=== PATIENT | female | born 1990 | race African-American/Black ===

== ENCOUNTER 2018-01-09 01:57 | Emergency (ER) | payer OTHER ==
[2018-01-09 02:02] VITALS: BP 126/93; PULSE 83; TEMP 98.6; BMI 24.1
--- NOTE | 2018-01-09 02:15 | PDOC ---
History of Present Illness - General Chief Complaint: Injury Stated Complaint: CUT BETWEEN FINGERS WITH A KNIFE Time Seen by Provider: 01/09/18 02:09 History Source: Patient Exam Limitations: No Limitations - History of Present Illness Initial Comments: 01/09/18 02:16 This is a 27-year-old female who cut her right webspace between the third and fourth fingers prior to coming in. Patient said that she accidentally cut it on a knife at work. Patient otherwise denies any complaints. Patient's tetanus -is up-to-date as she has a year ago. Patient is otherwise healthy denies any other complaints. PAST MEDICAL HISTORY: no significant history PAST SURGICAL HISTORY: no significant history FAMILY HISTORY: no pertinant history SOCIAL HISTORY: Pt lives with family and is employed. MEDICATIONS: reviewed ALLERGIES: As per nursing notes Review of Systems General: No fevers or chills, no weakness, no weight loss HEENT: No change in vision. No sore throat,. No ear pain CardioVascular: No chest pain or shortness of breath Respiratory:No cough, or wheezing. Gastrointestinal: no nausea, vomitting, diarrhea or constipation, No rectal bleeding Genitourinary: No dysuria, hematuria, or frequency Musculoskeletal: No joint or muscle pain or swelling Neurologic: No headache, vertigo, dizziness or loss of consciousness Psychiatric: nor depression Skin: No rashes or easy bruising Endocrine: no increased thirst or abnormal weight change Allergic: no skin or latex allergy All other systems reviewed and normal GENERAL: The patient is awake, alert, and fully oriented, in no acute distress. HEAD: Normal with no signs of trauma. EYES: Pupils equal, round and reactive to light, extraocular movements intact, sclera anicteric, conjunctiva clear. EXTREMITIES: Normal range of motion, no edema. There is a superficial laceration between the third and fourth fingers. Approximately a half centimeter in length. Neurovascular distal is intact there is no active bleeding. NEUROLOGICAL: Normal speech, normal gait. grossly intact PSYCH: Normal mood, normal affect. SKIN: Warm, Dry, normal turgor, no rashes or lesions noted. Procedure note: The laceration was cleaned with peroxide and closed with Dermabond patient tolerated well Assessment and plan: This is a 27-year-old female who comes in with a superficial laceration in the [place] patient between her third and fourth finger of her right hand. Laceration was closed with Dermabond and patient was discharged patient will follow-up with her primary care doctor as needed Past History - Past Medical History Allergies/Adverse Reactions: Allergies Allergy/AdvReac Type Severity Reaction Status Date / Time No Known Allergies Allergy Verified 01/09/18 01:58 Home Medications: Ambulatory Orders No Home Medications 0 dose .ROUTE UTDICT 11/29/12 COPD: No Other medical history: DENIES - Immunization History Immunization Up to Date: Yes - Suicide/Smoking/Psychosocial Hx Smoking Status: No Smoking History: Never smoked Have you smoked in the past 12 months: No Number of Cigarettes Smoked Daily: 0 Information on smoking cessation initiated: No Hx Alcohol Use: Yes (EVERY OTHER DAY) Drug/Substance Use Hx: Yes (MARIJUANA) Substance Use Type: Alcohol, Marijuana *Physical Exam - Vital Signs Last Vital Signs Temp Pulse Resp BP Pulse Ox 98.6 F 83 16 126/93 100 01/09/18 01:58 01/09/18 01:58 01/09/18 01:58 01/09/18 01:58 01/09/18 01:58 *DC/Admit/Observation/Transfer Diagnosis at time of Disposition: Laceration of hand Qualifiers: Encounter type: initial encounter Foreign body presence: without foreign body Laterality: right Qualified Code(s): S61.411A - Laceration without foreign body of right hand, initial encounter - Discharge Dispostion Disposition: HOME Condition at time of disposition: Stable - Referrals - Patient Instructions Printed Discharge Instructions: DI for Laceration Repair With Dermabond Additional Instructions: Read over and follow the Dermabond instructions. The most important point is that he needs to stay dry for 72 hours and no lotions creams or ointments on it that we'll consult mood, for early. Tylenol or Motrin as needed for pain Return to the emergency department immediately with ANY new, persistent or worsening symptoms. Continue any medications as previously prescribed by your physician. You should follow up with your primary doctor as soon as possible regarding today's emergency department visit. . Please make sure your doctor reviews the results of your emergency evaluation. Thank you for coming to the Emergency Department today for your care. It was a pleasure to see you today. Please note that your evaluation is INCOMPLETE until you follow-up with your doctor. - Post Discharge Activity Forms/Work/School Notes: Back to Work
== END 2018-01-09 02:28 | disposition home or self-care (01) ==
LOC: FER 01:57
PROC: 0HQFXZZ Repair Right Hand Skin, External Approach (ICD-10-PCS; principal; 2018-01-09)
DX: S61.411A Laceration without foreign body of right hand, initial encounter (principal); W26.0XXA Contact with knife, initial encounter; Y93.9 Activity, unspecified; Y92.89 Other specified places as the place of occurrence of the external cause; Y99.0 Civilian activity done for income or pay
CPT/HCPCS: 99281-25

== ENCOUNTER 2022-02-21 04:16 | Day surgery (SDC) | payer OTHER ==
[2022-02-15 11:22] VITALS: BMI 25.2
[2022-02-21 12:53] VITALS: TEMP 97.3
[2022-02-21 13:31] VITALS: BP 123/98; PULSE 88
== END 2022-02-21 13:46 | disposition home or self-care (01) ==
LOC: JASU-ENDO 04:16
PROVIDERS: ATTEND Internal Medicine Gastroenterology
PROC: 0DB68ZX Excision of Stomach, Via Natural or Artificial Opening Endoscopic, Diagnostic (ICD-10-PCS; 2022-02-21)
PROC: 0DB98ZX Excision of Duodenum, Via Natural or Artificial Opening Endoscopic, Diagnostic (ICD-10-PCS; principal; 2022-02-21 10:45)
DX: K44.9 Diaphragmatic hernia without obstruction or gangrene (principal); K31.9 Disease of stomach and duodenum, unspecified; R10.13 Epigastric pain
CPT/HCPCS: 81025; 88305-TC; 88342-TC

== ENCOUNTER 2022-12-07 17:51 | Emergency (ER) | payer OTHER ==
[2022-12-07 18:00] VITALS: RESP 16; BMI 24.1
[2022-12-07] MEDS ORDERED: ACETAMINOPHEN 1000 MG/100 ML BAG IVPB ONE (20:38)
[2022-12-07] MEDS ORDERED: ACETAMINOPHEN INJECTION 100 ML IVPB ONE (20:44)
[2022-12-07 21:04] LABS: BASO % 0.7 % (0-2.0); EOS % 0.1 % (0-4.5); HEMATOCRIT 33.7 % (32.4-45.2); HEMOGLOBIN 11.3 GM/dL (10.7-15.3); LYMPH % 13.2 % (8-40); MCH 33.1 pg (25.7-33.7); MCHC 33.5 g/dl (32.0-36.0); MEAN PLT VOLUME 7.9 fl (7.5-11.1); MONO % 4.4 % (3.8-10.2); NEUT % 81.6 % (42.8-82.8); PLATELET COUNT 129 10^3/uL (134-434); RDW 20.7 % (11.6-15.6); WHITE BLOOD COUNT 7.6 K/mm3 (4.0-10.0)
[2022-12-07 21:25] LABS: CALCIUM 8.4 mg/dL (8.5-10.1)
[2022-12-07 21:26] LABS: ALBUMIN 3.6 g/dl (3.4-5.0); BLOOD UREA NITROGEN 15.3 mg/dL (7-18); MAGNESIUM 1.6 mg/dL (1.8-2.4)
[2022-12-07 21:29] LABS: CREATININE 0.8 mg/dL (0.55-1.3)
[2022-12-07 21:30] LABS: ACTIVATED PTT 29.1 SECONDS (25.2-36.5); BILIRUBIN,TOTAL 2.1 mg/dL (0.2-1); INR 1.14 (0.83-1.09); PROTHROMBIN TIME (PATIENT) 13.2 SEC (9.7-13.0); TOT PROT 7.8 g/dl (6.4-8.2)
[2022-12-07 21:34] LABS: N-TERMINAL BNP 9.5 pg/ml (5-125)
[2022-12-07] MEDS ORDERED: MAGNESIUM SULF 50% (8.12 MEQ/2 ML-1 GM VIAL) IVPB ONE (21:51)
[2022-12-07 22:04] VITALS: BP 112/68; PULSE 103; TEMP 99.4
[2022-12-07 22:12] LABS: ANISOCYTOSIS 2+; MACROCYTOSIS 2+; TARGET CELLS 1+
[2022-12-07] MEDS ORDERED: MAGNESIUM SULFATE IN WATER 2 GM/50 ML IVPB IVPB ONE (23:27)
[2022-12-08] MEDS ORDERED: MAGNESIUM SULFATE IN WATER 2 GM/50 ML IVPB IVPB ONE (00:25)
== END 2022-12-08 01:50 | disposition home or self-care (01) ==
LOC: JER 17:51
PROC: 3E033GC Introduction of Other Therapeutic Substance into Peripheral Vein, Percutaneous Approach (ICD-10-PCS; principal; 2022-12-07)
DX: R00.2 Palpitations (principal); R07.9 Chest pain, unspecified; R74.01 Elevation of levels of liver transaminase levels
CPT/HCPCS: 0241U-QW; 36415; 71046-TC-FY; 71275-TC; 76705-TC; 80053; 83735; 83880; 84439; 84443; 84484; 84703; 85025; 85379; 85610; 85730; 93005; 93010; 93308; 99285-25; Q9967

== ENCOUNTER 2023-04-17 13:15 | Inpatient (IN) | payer OTHER ==
[2023-04-17] MEDS ORDERED: ACETAMINOPHEN 1000 MG/100 ML BAG IVPB ONE (14:29)
[2023-04-17] MEDS ORDERED: MAG HYDROX/AL HYDROX/SIMETH 30 ML UNIT-DOSE CUP PO ONE (14:29)
[2023-04-17] MEDS ORDERED: SODIUM CHLORIDE 1,000 ML IV STA (14:29)
[2023-04-17] MEDS ORDERED: FAMOTIDINE 20 MG/50 ML IVPB 20 MG/50 ML MG IVPB ONE ×2 (14:29→15:00)
[2023-04-17] MEDS ORDERED: MAG HYDROX/AL HYDROX/SIMETH 30 ML UNIT-DOSE CUP ONE (14:59)
[2023-04-17] MEDS ORDERED: ACETAMINOPHEN INJECTION 100 ML IVPB ONE (14:59)
[2023-04-17 16:09] LABS: BASO % 0.3 % (0-2.0); EOS % 1.8 % (0-4.5); HEMATOCRIT 34.4 % (32.4-45.2); HEMOGLOBIN 11.1 GM/dL (10.7-15.3); LYMPH % 9.9 % (8-40); MCHC 32.2 g/dl (32.0-36.0); MEAN CELL VOLUME 105.7 fl (80-96); MEAN PLT VOLUME 7.9 fl (7.5-11.1); MONO % 5.6 % (3.8-10.2); NEUT % 82.4 % (42.8-82.8); PLATELET COUNT 532 10^3/uL (134-434); RBC 3.25 M/mm3 (3.60-5.2); RDW 17.8 % (11.6-15.6); WHITE BLOOD COUNT 7.5 K/mm3 (4.0-10.0)
[2023-04-17 16:18] LABS: EPI CELLS 19 /uL (0-25.1); HYALINE CASTS 0 /uL (0-3.1); URINE APPEARANCE CLEAR; URINE BACTERIA 150 /uL (0-1359); URINE BILIRUBIN NEGATIVE (NEGATIVE); URINE COLOR DK YELLOW; URINE GLUCOSE (UA) NEGATIVE (NEGATIVE); URINE KETONE TRACE (NEGATIVE); URINE LEUK ESTERASE NEGATIVE (NEGATIVE); URINE NITRITE NEGATIVE (NEGATIVE); URINE PROTEIN 1+ (NEGATIVE); URINE RBC 37 /uL (0-23.9); URINE WBC 8 /uL (0-25.8)
[2023-04-17 16:19] LABS: INR 1.03 (0.83-1.09); PROTHROMBIN TIME (PATIENT) 11.9 SEC (9.7-13.0)
[2023-04-17 16:22] LABS: ACTIVATED PTT 31.3 SECONDS (25.2-36.5)
[2023-04-17 16:27] LABS: CHLORIDE 105 mmol/L (98-107); POTASSIUM 3.8 mmol/L (3.5-5.1); SODIUM 140 mmol/L (136-145)
[2023-04-17 16:31] LABS: GLUCOSE,RANDOM 87 mg/dL (74-106)
[2023-04-17 16:32] LABS: ALBUMIN 2.8 g/dl (3.4-5.0); ANION GAP 8 MMOL/L (8-16); CO2 27 mmol/L (21-32)
[2023-04-17 16:34] LABS: CREATININE 0.6 mg/dL (0.55-1.3); SGPT/ALT 17 U/L (13-61)
[2023-04-17 16:35] LABS: BILIRUBIN,TOTAL 0.4 mg/dL (0.2-1); SGOT/AST 23 U/L (15-37); TOT PROT 7.4 g/dl (6.4-8.2)
[2023-04-17 16:37] LABS: ALK PHOS 99 U/L (45-117)
[2023-04-17 17:02] LABS: LIPASE 2518 U/L (73-393)
[2023-04-17] MEDS ORDERED: morphine CARPU-JECT 4 MG/1 ML DISP.SYRIN IVPUSH ONE (17:08)
[2023-04-17] MEDS ORDERED: ACETAMINOPHEN 325 MG TABLET (FP) PO PRN (17:25)
[2023-04-17] MEDS ORDERED: LACTATED RINGERS SOLUTION 1000 ML INFUS.BAG IV ONE (17:28)
[2023-04-17] MEDS ORDERED: morphine SULFATE 4 MG/ML VIAL ONE (17:34)
[2023-04-17 17:42] LABS: ANISOCYTOSIS 2+; MACROCYTOSIS 2+
[2023-04-17] MEDS ORDERED: ALBUTEROL SO4 HFA INHALER IH PRN (17:52)
[2023-04-17] MEDS: LACTATED RINGERS SOLUTION 1,000 ML/1,000 ML INFUS.BAG IV SCH (20:28)
[2023-04-17] MEDS: MELATONIN 1 MG TABLET PO PRN (23:14)
[2023-04-18 00:29] VITALS: BMI 25.4
[2023-04-18] MEDS: BUDESONIDE/FORMETEROL FUMARATE 160/4.5 mcg INHALER IH SCH ×3 (01:24→21:53)
[2023-04-18 05:01] VITALS: RESP 18
[2023-04-18] MEDS: ENOXAPARIN NA (PORCINE) 40 MG/0.4 ML DISP.SYRIN SQ SCH (10:14)
[2023-04-18] MEDS: PANTOPRAZOLE 20 MG TABLET PO SCH (10:14)
[2023-04-18] MEDS: LORATADINE 10 MG TABLET PO SCH (10:14)
[2023-04-18 11:28] LABS: HEMATOCRIT 31.3 % (32.4-45.2); HEMOGLOBIN 10.3 GM/dL (10.7-15.3); MCH 34.5 pg (25.7-33.7); MCHC 32.8 g/dl (32.0-36.0); MEAN CELL VOLUME 105.3 fl (80-96); MEAN PLT VOLUME 7.5 fl (7.5-11.1); PLATELET COUNT 467 10^3/uL (134-434); RBC 2.98 M/mm3 (3.60-5.2); RDW 17.8 % (11.6-15.6); WHITE BLOOD COUNT 6.1 K/mm3 (4.0-10.0)
[2023-04-18 11:55] LABS: POTASSIUM 3.7 mmol/L (3.5-5.1)
[2023-04-18 12:02] LABS: ALBUMIN 2.7 g/dl (3.4-5.0)
[2023-04-18 12:04] LABS: BLOOD UREA NITROGEN 3.3 mg/dL (7-18); CALCIUM 8.4 mg/dL (8.5-10.1); MAGNESIUM 1.7 mg/dL (1.8-2.4)
[2023-04-18 12:07] LABS: CREATININE 0.6 mg/dL (0.55-1.3)
[2023-04-18 12:08] LABS: BILIRUBIN,TOTAL 0.4 mg/dL (0.2-1); PHOSPHOROUS 4.5 mg/dL (2.5-4.9)
[2023-04-18 12:11] LABS: TOT PROT 6.9 g/dl (6.4-8.2)
[2023-04-18] MEDS: LACTATED RINGERS SOLUTION 1,000 ML/1,000 ML INFUS.BAG IV SCH (21:53)
[2023-04-18] MEDS: MELATONIN 1 MG TABLET PO PRN (22:00)
[2023-04-18] MEDS ORDERED: MAG HYDROX/AL HYDROX/SIMETH 30 ML UNIT-DOSE CUP PO ONE (22:37)
[2023-04-19] MEDS: KETOROLAC TROMETHAMINE 15 MG/ML VIAL IVPUSH PRN (00:57)
[2023-04-19] MEDS: LORATADINE 10 MG TABLET PO SCH (09:47)
[2023-04-19] MEDS: PANTOPRAZOLE 20 MG TABLET PO SCH (09:47)
[2023-04-19] MEDS: ENOXAPARIN NA (PORCINE) 40 MG/0.4 ML DISP.SYRIN SQ SCH (09:49)
[2023-04-19] MEDS: BUDESONIDE/FORMETEROL FUMARATE 160/4.5 mcg INHALER IH SCH ×2 (09:50→21:24)
[2023-04-19 09:59] LABS: BASO % 0.4 % (0-2.0); EOS % 14.8 % (0-4.5); HEMATOCRIT 29.6 % (32.4-45.2); HEMOGLOBIN 10.1 GM/dL (10.7-15.3); LYMPH % 19.3 % (8-40); MCH 35.1 pg (25.7-33.7); MCHC 34.1 g/dl (32.0-36.0); MEAN CELL VOLUME 103.2 fl (80-96); MEAN PLT VOLUME 7.1 fl (7.5-11.1); MONO % 7.1 % (3.8-10.2); NEUT % 58.4 % (42.8-82.8); PLATELET COUNT 390 10^3/uL (134-434); RBC 2.87 M/mm3 (3.60-5.2); RDW 17.7 % (11.6-15.6); WHITE BLOOD COUNT 5.5 K/mm3 (4.0-10.0)
[2023-04-19 10:51] LABS: POTASSIUM 3.9 mmol/L (3.5-5.1)
[2023-04-19 11:07] LABS: BLOOD UREA NITROGEN 4.6 mg/dL (7-18); CALCIUM 8.5 mg/dL (8.5-10.1)
[2023-04-19 11:08] LABS: ALBUMIN 2.5 g/dl (3.4-5.0)
[2023-04-19 11:10] LABS: CREATININE 0.6 mg/dL (0.55-1.3)
[2023-04-19 11:11] LABS: TOT PROT 6.6 g/dl (6.4-8.2)
[2023-04-19 11:12] LABS: BILIRUBIN,TOTAL 0.3 mg/dL (0.2-1)
[2023-04-19] MEDS: LACTATED RINGERS SOLUTION 1,000 ML/1,000 ML INFUS.BAG IV SCH (12:58)
[2023-04-19] MEDS: MAGNESIUM OXIDE 400 MG TABLET (FP) PO SCH ×2 (14:17→21:24)
[2023-04-19] MEDS: FERROUS SO4 325 MG TABLET (FP) PO SCH (17:07)
[2023-04-19] MEDS: MELATONIN 1 MG TABLET PO PRN (21:24)
[2023-04-20] MEDS: MAGNESIUM OXIDE 400 MG TABLET (FP) PO SCH (06:19)
[2023-04-20 08:06] LABS: CARCINOEMBRYONIC ANTIGEN 1.7 ng/mL (0.0-4.7)
[2023-04-20] MEDS: KETOROLAC TROMETHAMINE 15 MG/ML VIAL IVPUSH PRN (09:21)
[2023-04-20] MEDS: FERROUS SO4 325 MG TABLET (FP) PO SCH (09:21)
[2023-04-20] MEDS: BUDESONIDE/FORMETEROL FUMARATE 160/4.5 mcg INHALER IH SCH (09:28)
[2023-04-20] MEDS: ENOXAPARIN NA (PORCINE) 40 MG/0.4 ML DISP.SYRIN SQ SCH (09:29)
[2023-04-20 10:03] LABS: BASO % 0.4 % (0-2.0); EOS % 13.4 % (0-4.5); HEMATOCRIT 31.5 % (32.4-45.2); HEMOGLOBIN 10.4 GM/dL (10.7-15.3); LYMPH % 16.7 % (8-40); MCH 34.4 pg (25.7-33.7); MCHC 32.9 g/dl (32.0-36.0); MEAN CELL VOLUME 104.6 fl (80-96); MEAN PLT VOLUME 7.9 fl (7.5-11.1); NEUT % 61.5 % (42.8-82.8); PLATELET COUNT 453 10^3/uL (134-434); RBC 3.01 M/mm3 (3.60-5.2); RDW 17.7 % (11.6-15.6); WHITE BLOOD COUNT 5.7 K/mm3 (4.0-10.0)
[2023-04-20 10:24] LABS: POTASSIUM 4.1 mmol/L (3.5-5.1)
[2023-04-20 10:26] LABS: ALBUMIN 2.7 g/dl (3.4-5.0); BLOOD UREA NITROGEN 3.9 mg/dL (7-18); CALCIUM 8.6 mg/dL (8.5-10.1); MAGNESIUM 1.6 mg/dL (1.8-2.4)
[2023-04-20 10:29] LABS: CREATININE 0.5 mg/dL (0.55-1.3)
[2023-04-20 10:31] LABS: BILIRUBIN,TOTAL 0.2 mg/dL (0.2-1); TOT PROT 7.2 g/dl (6.4-8.2)
[2023-04-20] MEDS ORDERED: MAGNESIUM OXIDE 400 MG TABLET (FP) PO ONE (11:44)
[2023-04-20] MEDS: LACTATED RINGERS SOLUTION 1,000 ML/1,000 ML INFUS.BAG IV SCH (11:53)
[2023-04-20] MEDS ORDERED: MAGNESIUM 1GM/D5W - 1 GM/100 ML IVPB IVPB ONE (14:28)
[2023-04-20 15:12] VITALS: BP 144/96; PULSE 66; TEMP 98.5
== END 2023-04-20 21:05 | disposition home or self-care (01) | DRG 282 ==
LOC: JER 13:15 → JERBED 17:06 → J6S 19:57
PROVIDERS: ADMIT Internal Medicine; ATTEND Student in an Organized Health Care Education/Training Program
DX: K85.90 Acute pancreatitis without necrosis or infection, unspecified (principal); R10.31 Right lower quadrant pain; G43.909 Migraine, unspecified, not intractable, without status migrainosus; K44.9 Diaphragmatic hernia without obstruction or gangrene; L40.9 Psoriasis, unspecified; E83.42 Hypomagnesemia; D50.9 Iron deficiency anemia, unspecified; D13.4 Benign neoplasm of liver; F32.A Depression, unspecified; I50.9 Heart failure, unspecified
CPT/HCPCS: 36415; 71045-TC-FY; 71046-TC-FY; 74178-TC; 74181-TC; 76700-TC; 80053; 81003; 82105; 82378; 82607; 82728; 82746; 83540; 83550; 83690; 83735; 84100; 84439; 84443; 84478; 84702; 85025; 85027; 85610; 85730; 86850; 86900; 86901; 87086; 93306-TC; 99285-25

== ENCOUNTER 2023-11-20 16:50 | Emergency (ER) | payer OTHER ==
[2023-11-20 17:07] VITALS: BP 118/78; PULSE 96; RESP 18; TEMP 97.8; BMI 24.1
[2023-11-20 17:37] LABS: HCG,QUALITATIVE URINE Negative
[2023-11-20 17:43] LABS: EPITHELIAL CELLS 0-5 /hpf
[2023-11-20] MEDS ORDERED: ONDANSETRON 4 MG/2 ML VIAL ONE (17:43)
[2023-11-20] MEDS ORDERED: FAMOTIDINE 20 MG/50 ML IVPB 20 MG/50 ML MG IVPB ONE (17:44)
[2023-11-20] MEDS: ONDANSETRON 4 MG/2 ML VIAL IVPUSH ONE (18:00)
[2023-11-20 18:08] LABS: HEMATOCRIT 30.7 % (32.4-45.2); HEMOGLOBIN 10.4 G/dL (10.7-15.3); MCH 35.9 pg (25.7-33.7); MCHC 33.9 g/dl (32.0-36.0); MEAN PLT VOLUME 8.1 fl (7.5-11.1); PLATELET COUNT 84.3 10^3/uL (134-434); WHITE BLOOD COUNT 3.3 10^3/uL (4.0-10.8)
[2023-11-20] MEDS: FAMOTIDINE 20 MG/50 ML IVPB 20 MG/50 ML MG IVPB ONE (18:10)
[2023-11-20] MEDS: SODIUM CHLORIDE 0.9% 500 ML INFUS.BAG IV ONE (18:10)
[2023-11-20 18:26] LABS: ALBUMIN 4.2 g/dl (3.4-5.0); BILIRUBIN,TOTAL 0.5 mg/dl (0.2-1); CALCIUM 8.7 mg/dl (8.5-10.1); CREATININE 0.6 mg/dl (0.6-1.3); MAGNESIUM 1.4 mg/dL (1.8-2.4); POTASSIUM 4.4 mmol/L (3.5-5.1); TOT PROT 7.3 g/dl (6.4-8.2)
[2023-11-20 19:10] LABS: ANISOCYTOSIS 1+; MACROCYTOSIS 2+; PLATELET ESTIMATE DECREASED
[2023-11-20] MEDS ORDERED: MAGNESIUM 1GM/D5W - 1 GM/100 ML IVPB IVPB ONE (19:26)
[2023-11-20 19:28] LABS: LACTIC ACID 2.1 mmol/L (0.4-2.0)
[2023-11-20] MEDS ORDERED: ACETAMINOPHEN INJECTION 100 ML IVPB ONE (21:17)
[2023-11-20] MEDS: ACETAMINOPHEN 1000 MG/100 ML BAG IVPB ONE (21:22)
== END 2023-11-20 22:07 | disposition home or self-care (01) ==
LOC: FER 16:50
PROC: 3E033GC Introduction of Other Therapeutic Substance into Peripheral Vein, Percutaneous Approach (ICD-10-PCS; principal; 2023-11-20)
PROC: 3E033GC Introduction of Other Therapeutic Substance into Peripheral Vein, Percutaneous Approach (ICD-10-PCS; 2023-11-20)
PROC: 3E033GC Introduction of Other Therapeutic Substance into Peripheral Vein, Percutaneous Approach (ICD-10-PCS; 2023-11-20)
PROC: 3E033GC Introduction of Other Therapeutic Substance into Peripheral Vein, Percutaneous Approach (ICD-10-PCS; 2023-11-20)
PROC: 3E033NZ Introduction of Analgesics, Hypnotics, Sedatives into Peripheral Vein, Percutaneous Approach (ICD-10-PCS; 2023-11-20)
DX: R10.13 Epigastric pain (principal); R11.2 Nausea with vomiting, unspecified; K59.00 Constipation, unspecified; Z20.822 Contact with and (suspected) exposure to COVID-19
CPT/HCPCS: 0241U-QW; 36415; 74177-TC; 80053; 81003; 81015; 83605; 83690; 83735; 84703; 85025; 87086; 87186; 96365; 96366; 96367; 96375; 99285-25; J0131; Q9967

== ENCOUNTER 2024-06-09 04:13 | Inpatient (IN) | payer OTHER ==
[2024-06-03 16:28] VITALS: BMI 41.9
[2024-06-09] MEDS ORDERED: PROMETHAZINE HCL 25 MG/1 ML VIAL IVPB ONE (07:36)
[2024-06-09] MEDS ORDERED: BUTORPHANOL TARTRATE 1 MG/ML VIAL IVPB PRN (07:36)
[2024-06-09] MEDS ORDERED: ELECTROLYTE-148 SOLN 1,000 ML IV SCH (07:45)
[2024-06-09] MEDS ORDERED: MIDAZOLAM HCL 2 MG/2 ML SINGLE DOSE VIAL ONE ×2 (09:13→10:16)
[2024-06-09] MEDS ORDERED: SUCCINYLCHOLINE CHLORIDE 200 MG/10 ML SYRINGE ONE (09:13)
[2024-06-09] MEDS ORDERED: PROPOFOL 20 ML ONE (09:13)
[2024-06-09] MEDS ORDERED: BUPIVACAINE HCL/PF 0.5% (5MG/ML) 10 ML VIAL ONE (09:47)
[2024-06-09] MEDS ORDERED: ALBUTEROL SO4 HFA INHALER IH ONE (09:52)
[2024-06-09] MEDS ORDERED: TRANEXAMIC ACID 1000 MG/10 ML VIAL ONE (10:44)
[2024-06-09] MEDS: LACTATED RINGERS SOLUTION 1,000 ML IV SCH (12:35)
[2024-06-09] MEDS ORDERED: NALOXONE HCL 0.4 MG/ML VIAL IVPUSH PRN (12:39)
[2024-06-09] MEDS ORDERED: oxyCODONE HCL 5 MG TABLET PO PRN ×2 (12:39→13:14)
[2024-06-09] MEDS ORDERED: ONDANSETRON 4 MG/2 ML VIAL IVPUSH PRN ×2 (12:39)
[2024-06-09] MEDS ORDERED: traZODone HCL 100 MG TABLET (FP) PO PRN (12:39)
[2024-06-09] MEDS ORDERED: ALBUTEROL SO4 HFA INHALER IH PRN (12:39)
[2024-06-09] MEDS ORDERED: ACETAMINOPHEN INJECTION 100 ML ONE (13:03)
[2024-06-09] MEDS: ACETAMINOPHEN 325 MG TABLET (FP) PO SCH (13:05)
[2024-06-09] MEDS: ACETAMINOPHEN 1000 MG/100 ML BAG IVPB ONE (13:06)
[2024-06-09] MEDS: MAGNESIUM OXIDE 400 MG TABLET (FP) PO SCH (13:58)
[2024-06-09] MEDS: GABAPENTIN 300 MG CAPSULE PO SCH (13:58)
[2024-06-09] MEDS: BUDESONIDE/FORMETEROL FUMARATE 160/4.5 mcg INHALER IH SCH (13:58)
[2024-06-09] MEDS: morphine SULFATE/PF 1 MG/2 ML (2cc Syringe - QUVA) IT ONE (13:59)
[2024-06-09] MEDS: CEFAZOLIN SODIUM 2 GM in DEXTROSE 5%-WATER 100 ML IVPB SCH (18:09)
[2024-06-09] MEDS: CEFAZOLIN 2 GM in DEXTROSE 5%-WATER - 100 ML IVPB SCH (18:32)
[2024-06-09] MEDS: diphenhydrAMINE HCL 25 MG CAPSULE (FP) PO ONE (20:47)
[2024-06-09] MEDS: oxyCODONE HCL 5 MG TABLET PO PRN (21:18)
[2024-06-09] MEDS ORDERED: PATIENT'S OWN MEDICATION (NON-FORMULARY) (Levetiracetam [Levetiracetam] 750 MG Tablet) PO SCH (22:00)
[2024-06-10] MEDS: diphenhydrAMINE HCL 25 MG CAPSULE (FP) PO ONE (00:10)
[2024-06-10] MEDS: FERROUS SO4 325 MG TABLET (FP) PO SCH (09:57)
[2024-06-10] MEDS: ENOXAPARIN NA (PORCINE) 40 MG/0.4 ML DISP.SYRIN SQ SCH (10:13)
[2024-06-10 11:41] LABS: BASO % 0.3 % (0-2.0); HEMATOCRIT 29.5 % (32.4-45.2); HEMOGLOBIN 9.7 GM/dL (10.7-15.3); MCHC 32.8 g/dl (32.0-36.0); MEAN CELL VOLUME 97.5 fl (80-96); MEAN PLT VOLUME 6.7 fl (7.5-11.1); MONO % 16.2 % (3.8-10.2); NEUT % 65.5 % (42.8-82.8); PLATELET COUNT 459 10^3/uL (134-434); RBC 3.03 M/mm3 (3.60-5.2); RDW 18.7 % (11.6-15.6); WHITE BLOOD COUNT 6.9 K/mm3 (4.0-10.0)
[2024-06-10 12:17] LABS: POTASSIUM 3.6 mmol/L (3.5-5.1)
[2024-06-10 12:19] LABS: BLOOD UREA NITROGEN 11.1 mg/dL (7-18); CALCIUM 8.3 mg/dL (8.5-10.1)
[2024-06-10 12:22] LABS: CREATININE 0.7 mg/dL (0.55-1.3)
[2024-06-10] MEDS: SPIRONOLACTONE 25 MG TABLET PO SCH (13:43)
[2024-06-10] MEDS: LOSARTAN POTASSIUM 25 MG TABLET PO SCH (13:43)
[2024-06-10] MEDS: oxyCODONE HCL 10 MG SUSTAINED ACTING TABLET PO SCH (13:47)
[2024-06-10 14:08] VITALS: RESP 18
[2024-06-10] MEDS: AMOX TR/POT CLAV 875MG/125MG TABLETS (FP) PO SCH (18:24)
[2024-06-11 10:17] LABS: BASO % 0.2 % (0-2.0); EOS % 0.2 % (0-4.5); HEMOGLOBIN 8.8 GM/dL (10.7-15.3); LYMPH % 15.7 % (8-40); MCHC 32.7 g/dl (32.0-36.0); MEAN CELL VOLUME 97.9 fl (80-96); MEAN PLT VOLUME 6.9 fl (7.5-11.1); MONO % 10.3 % (3.8-10.2); NEUT % 73.6 % (42.8-82.8); PLATELET COUNT 398 10^3/uL (134-434); RBC 2.76 M/mm3 (3.60-5.2); RDW 18.2 % (11.6-15.6); WHITE BLOOD COUNT 8.9 K/mm3 (4.0-10.0)
[2024-06-11 10:24] LABS: POTASSIUM 3.7 mmol/L (3.5-5.1)
[2024-06-11 10:27] LABS: CALCIUM 8.4 mg/dL (8.5-10.1)
[2024-06-11 10:28] LABS: BLOOD UREA NITROGEN 4.2 mg/dL (7-18)
[2024-06-11 10:31] LABS: CREATININE 0.6 mg/dL (0.55-1.3)
[2024-06-11 14:35] VITALS: BP 115/83; PULSE 80; TEMP 99
== END 2024-06-11 18:30 | disposition home or self-care (01) | DRG 519 ==
LOC: J2C 04:13 → J6S 15:31
PROVIDERS: ADMIT Obstetrics & Gynecology; ATTEND Obstetrics & Gynecology
PROC: 0UB90ZZ Excision of Uterus, Open Approach (ICD-10-PCS; principal; 2024-06-09 10:15)
DX: D25.1 Intramural leiomyoma of uterus (principal); D25.2 Subserosal leiomyoma of uterus; G40.909 Epilepsy, unspecified, not intractable, without status epilepticus; J45.909 Unspecified asthma, uncomplicated; N92.0 Excessive and frequent menstruation with regular cycle
CPT/HCPCS: 36415; 80048; 81025; 85025; 86850; 86900; 86901; 88305-TC; 94760; J0131

== ENCOUNTER → 2025-07-16 | Emergency (ER) | payer OTHER ==
[~2025-07-16] MED LIST: MAGNESIUM SULFATE IN WATER 2 GM/50 ML IVPB IVPB ONE; THIAMINE 100 MG TABLET ONE
[2025-07-16 22:49] VITALS: BP 131/76; PULSE 93; RESP 18; TEMP 97.7; BMI 21.6
[2025-07-17 01:11] LABS: ABSOLUTE IMMATURE GRANULOCYTES 0.03 x10^3/uL (0.0-0.031); BASOPHILS # 0.01 x10^3/uL (0.01-0.08); EOSINOPHIL % 0.3 % (0.7-5.8); EOSINOPHILS # 0.01 x10^3/uL (0.04-0.36); MEAN CELL VOLUME 97.9 fl (79.4-94.8); MEAN PLT VOLUME 10.4 fl (9.4-12.3)
[2025-07-17 01:13] LABS: IMMATURE PLATELET FRACTION # 8.20 x10^3/uL; MCHC 33.8 g/dl (32.2-35.5); MONOCYTE # 0.30 x10^3/uL (0.24-0.86); MONOCYTE % 8.7 % (4.7-12.5); RDW 15.9 % (12.1-16.8)
[2025-07-17 01:16] LABS: EPI CELLS >36 /uL (0-25.1); HYALINE CASTS 1 /uL (0-3.1); URINE APPEARANCE CLOUDY; URINE BACTERIA 1496 /uL (0-1359); URINE BILIRUBIN 1+ (NEGATIVE); URINE COLOR DK YELLOW; URINE GLUCOSE (UA) NEGATIVE (NEGATIVE); URINE KETONE 1+ (NEGATIVE); URINE LEUK ESTERASE NEGATIVE (NEGATIVE); URINE NITRITE NEGATIVE (NEGATIVE); URINE PROTEIN 3+ (NEGATIVE); URINE UROBILINOGEN 1.0 mg/dL (0.2-1.0); URINE WBC 26 /uL (0-25.8)
[2025-07-17 01:31] LABS: GLUCOSE,RANDOM 110 mg/dL (74-106); TOT PROT 7.4 g/dl (6.4-8.2)
[2025-07-17 01:32] LABS: CO2 26 mmol/L (21-32)
[2025-07-17 01:34] LABS: ALK PHOS 142 U/L (40-150)
[2025-07-17 01:36] LABS: SGOT/AST 257 U/L (5-34); SGPT/ALT 132 U/L (0-55)
[2025-07-17 01:37] LABS: CREATININE 0.75 mg/dL (0.55-1.3)
[2025-07-17 01:58] LABS: HCV DIAGNOSTIC IN-HOUSE W/RFLX NON-REACTIVE (NONREACTIVE); HIV INTERPRETATION NEGATIVE (NEGATIVE)
[2025-07-17] MEDS: MAGNESIUM SULFATE IN WATER 2 GM/50 ML IVPB IVPB ONE (02:12)
[2025-07-17] MEDS: CYANOCOBALAMIN 1,000 MCG TABLET (FP) PO ONE (02:15)
[2025-07-17] MEDS: PYRIDOXINE HCL (B-6) 100 MG TABLET PO ONE (02:15)
[2025-07-17 07:14] LABS: URINE CRYSTALS NONE SEEN /hpf
== END | disposition home or self-care (01) ==
LOC: JER 22:37
PROC: 3E033GC Introduction of Other Therapeutic Substance into Peripheral Vein, Percutaneous Approach (ICD-10-PCS; principal; 2025-07-16)
DX: G40.909 Epilepsy, unspecified, not intractable, without status epilepticus (principal)
CPT/HCPCS: 36415; 71046-TC-FY; 80053; 80307; 81003; 83690; 83735; 85025; 86803; 87086; 87389; 87637-QW; 93005; 93010; 99285-25